=== PATIENT | male | born 1985 | race Asian ===

== ENCOUNTER 2021-11-19 08:28 | Emergency (ER) | payer OTHER, SELFPAY ==
[2021-11-19] VITALS (18 sets, daily range): BP systolic 158–178; BP diastolic 74–111; PULSE 75–97; RESP 12–27; TEMP 36.7; O2SAT 92–99
--- NOTE | ~2021-11-19 | XR_ITS ---
EXAMINATION: XR ankle LT 2V DATE: 11/19/2021 08:49 INDICATION: Left ankle deformity post fall TECHNIQUE: Anteroposterior and lateral views of the left ankle were obtained. COMPARISON: None. FINDINGS: Spiral fracture of the distal left fibular diaphysis with 25 degrees posterior and 20 degrees lateral angulation. Fracture appears mildly comminuted with a nondisplaced butterfly fragment extending up t o 6 cm proximally along the lateral margin of the proximal fragment. Complete disruption of the delto id ligament and distal tibiofibular syndesmosis with anterior and lateral dislocation of the tibial p natasha and with respect to the talus which is angulated posteriorly and laterally in conjunction with into a similar degree as the distal fibular fragment. Small os trigonum projects posterior to the ta lar dome. No other fractures identified. Moderate-sized Achilles and plantar calcaneal spurs. Profile d joint spaces in the left foot appear normal. IMPRESSION: 1. Angulated left fibular diaphyseal fracture and tibiotalar dislocation including disruption of the deltoid ligament and distal tibiofibular syndesmosis. Reviewed, dictated and finalized at location A. ER ATTACHER IMPRESSION: 1. Angulated left fibular diaphyseal fracture and tibiotalar dislocation includ ing disruption of the deltoid ligament and distal tibiofibular syndesmosis.
--- NOTE | ~2021-11-19 | XR_ITS ---
EXAMINATION: XR tibia fibula LT 2V EXAM DATE: 11/19/2021 09:28 INDICATION: ankle injury. TECHNIQUE: Left tibia/fibula frontal and lateral projections obtained and reviewed. Correlation is jacquelin cardenas to earlier same date. FINDINGS: There is fracture through the left fibular shaft with about 50% shaft width lateral displac ement. Alignment is near-anatomic. Mild widening of the ankle mortise medially (disrupted deltoid and distal tibiofibular syndesmotic ligaments were evident on prior study). Some small posterior avulsio n fragments from the tibia. There is no proximal fibular or proximal tibial fracture. Splint has been applied. IMPRESSION: Splinted left distal fibular diaphyseal fracture. Deltoid ligament and distal tibiofibul ar syndesmotic disruption. Reviewed, dictated and finalized at location B. RAL RESOURCE SPECIALIST IMPRESSION: Splinted left distal fibular diaphyseal fracture. Deltoid ligament and distal tibiofibular syndesmotic disruption.
--- NOTE | ~2021-11-19 | XR_ITS ---
EXAMINATION: XR ankle LT 2V EXAM DATE: 11/19/2021 09:28 INDICATION: Post reduction. TECHNIQUE: Frontal and lateral projections of the left ankle. Comparison is made to prior examinatio n from earlier same day. FINDINGS: Previously seen angulated left fibular fracture is now in near-anatomic alignment. There i s about 40% shaft width lateral displacement. The mortise relationship appears to have been restored. Some small avulsion fragments off of the tibia less well visualized on this exam. Based on prior ap pearance, patient has disrupted deltoid ligaments and distal tibiofibular syndesmosis. IMPRESSION: 1. Interval reduction in left talus, fibular fractures. 2. Disrupted deltoid ligaments, distal tibiofibular syndesmosis. Reviewed, dictated and finalized at location B. AL PHYSIOLOGIST
--- NOTE | 2021-11-19 08:41 | ED.GENADULT ---
HPI - General Adult General Chief complaint: Extremity Injury, Lower Stated complaint: ankle injury Time Seen by Provider: 11/19/21 08:34 History of Present Illness HPI narrative: 35-year-old male presenting to the emergency department for evaluation of a left ankle injury. Patient was stepping out of his truck slipped on ice and does have a significant deformity of his left ankle. Patient denies striking his head denies any loss consciousness. Upon arrival to the emergency room patient does have a significant deformity to his left ankle. Patient does report tingling sensation of the left foot, pulses still palpable upon arrival. Patient denies any allergies. Patient has had anesthesia before and had no issues other than nausea afterwards. Related Data Allergies Allergy/AdvReac Type Severity Reaction Status Date / Time No Known Allergies Allergy Verified 11/19/21 08:41 Review of Systems Review of Systems: CONSTITUTIONAL: Denies fever, chills, or sweats. EYES: Denies visual changes, redness, or discharge. ENT: Denies rhinorrhea, congestion, sore throat, or otalgia. CARDIOVASCULAR: Denies chest pain, palpitations, or edema. RESPIRATORY: Denies cough or dyspnea. GASTROINTESTINAL: Denies abdominal pain, nausea, vomiting, or diarrhea. GENITOURINARY: Denies dysuria or hematuria. SKIN: Denies rash or itching. MUSCULOSKELETAL: Left ankle pain and deformity All systems reviewed & are unremarkable except as noted in HPI and below Exam Narrative: APPEARANCE: Well appearing, no pain, no distress, well-nourished. HEAD: normocephalic, atraumatic. EYES: PERRLA/EOMI, conjunctivae clear. NOSE: Normal no drainage THROAT: Pharynx clear, no exudate. NECK: Supple. No adenopathy, no masses. RESPIRATORY: Airway patent, respirations nonlabored. Clear to auscultation bilaterally, no rales, rhonchi, wheezing. CARDIOVASCULAR: Regular rate and rhythm without murmurs rubs or gallops. ABDOMINAL: Soft, nontender, nondistended, normal bowel sounds Musculoskeletal: Significant deformity of the left lower ankle. Patient does have pulses intact. Patient does have tenting of the skin from the distal tibia. No break in the skin. Course Course Emergency Course: Patient ankle x-ray showed a talar dislocation. Patient was updated on results of his imaging. Patient was informed on the need for sedation and reduction and splinting. Patient underwent procedural sedation reduction and splinting without complication. Sugar-tong splint with a posterior short leg was used for increased stability. Was discussed with orthopedics and patient was seen by Dr. Hernandez in the emergency department. Patient will have follow-up with orthopedics on Monday and already has an appointment scheduled. Patient was provided crutches for nonweightbearing. Patient was also advised to rest and elevate the foot to prevent swelling. Patient was provided medications for pain control. All questions and concerns were addressed. Patient was in no distress at time of discharge from emergency room. Patient was fully recovered from and is procedural sedation at time of discharge. Vital Signs Vital signs: Vital Signs Temperature 98.0 F 11/19/21 08:34 Pulse Rate 79 11/19/21 08:34 Respiratory Rate 20 11/19/21 08:34 Blood Pressure 164/94 H 11/19/21 08:34 Pulse Oximetry 98 11/19/21 08:34 Temperature 98.0 F 11/19/21 09:44 Pulse Rate 75 11/19/21 10:32 Respiratory Rate 18 11/19/21 10:32 Blood Pressure 178/74 H 11/19/21 10:31 Pulse Oximetry 99 11/19/21 10:32 Procedures Orthopedic Fracture Reduction Fracture #1: Fracture Reduction date: 11/19/21 Fracture Reduction time: 09:09 Time Out Performed: Yes Side: left Fracture Reduction Location: other (left ankle) Analgesia: procedural sedation Technique: direct manipulation and traction/counter-traction Post Reduction X-rays Demonstrate: acceptable reduction
[2021-11-19] MEDS: fentaNYL CITRATE INJ (*CRX) 100 MCG/2 ML VIAL 75 MCG IV PUSH (09:00)
[2021-11-19] MEDS: ONDANSETRON INJ 4 MG/2 ML VIAL IV PUSH (09:01)
--- NOTE | 2021-11-19 09:37 | PC.NURSE ---
0904 60 mg propofol administered IVP Via ERP Kostas 904 60 mg Propofol administered IVP via ERP Kostas
--- NOTE | 2021-11-19 18:44 | PM.CNOR ---
Assessment and Plan Assessment and plan (1) Acute disruption of syndesmosis of ankle joint: Code(s): S93.439A - Sprain of tibiofibular ligament of unspecified ankle, initial encounter Status: Acute (2) Closed fibular fracture: Qualifiers: Encounter type: initial encounter Fibula location: shaft Fracture alignment: displaced Fracture morphology: oblique Laterality: left Qualified Code(s): S82.432A - Displaced oblique fracture of shaft of left fibula, initial encounter for closed fracture Code(s): S82.409A - Unspecified fracture of shaft of unspecified fibula, initial encounter for closed fracture Status: Acute Assessment and Plan: Ankle fracture dislocation with syndesmosis injury, and fibular shaft fracture. Reduced and splinted. Will need ORIF. Plan for syndesmosis fixation with tight rope suture button fixation. The fibula shaft may not require internal fixation. Anticipate surgery next week. Clinic check early next week. Discussed the importance of swelling control. We reviewed the expected results and typical recovery after surgery. We discussed the risks, benefits, and alternatives to surgery. He works on his feet as a cook; anticipate 4 months before he is able to return to full duty. History of Present Illness HPI Consult date: 11/19/21 Chief complaint: ankle injury Narrative: Patient complains of acute ankle pain. Fell from standing height while exiting his vehicle. Ankle dislocation reduced by ED personnel. Excellent reduction and splinting. Comfortable at rest. No numbness, tingling, or other associated symptoms. Review of Systems Review of Systems: Denies loss of consciousness. No other injuries noted. All systems reviewed & are unremarkable except as noted in HPI and below Meds Home Medications and Allergies Home Medications Medication Instructions Recorded Confirmed Type hydrocodone-acetaminophen 1 tablet PO Q6H PRN #14 tablet 11/19/21 Rx Allergies Allergy/AdvReac Type Severity Reaction Status Date / Time No Known Allergies Allergy Verified 11/19/21 08:41 Vital Signs Vital Signs - 24 hr 11/19/21 08:34 11/19/21 08:35 11/19/21 08:45 Temperature 36.7 C Pulse Rate 79 88 81 Pulse Rate [Monitor] Respiratory Rate 20 18 16 Blood Pressure 164/94 H 164/94 H Blood Pressure [Right Arm] Pulse Oximetry 98 96 11/19/21 08:46 11/19/21 09:00 11/19/21 09:04 Temperature 36.7 C 36.7 C Pulse Rate 84 Pulse Rate [Monitor] 84 80 Respiratory Rate 18 20 16 Blood Pressure 164/90 H Blood Pressure [Right Arm] 166/107 H 164/90 H Pulse Oximetry 98 95 11/19/21 09:09 11/19/21 09:14 11/19/21 09:29 Temperature 36.7 C Pulse Rate Pulse Rate [Monitor] 90 97 97 Respiratory Rate 18 23 H 26 H Blood Pressure Blood Pressure [Right Arm] 166/107 H 166/100 H 165/111 H Pulse Oximetry 95 99 92 11/19/21 09:44 11/19/21 09:46 11/19/21 09:47 Temperature 36.7 C Pulse Rate 80 88 Pulse Rate [Monitor] 88 Respiratory Rate 14 27 H 16 Blood Pressure 158/90 H Blood Pressure [Right Arm] 162/110 H Pulse Oximetry 97 96 99 11/19/21 10:00 11/19/21 10:15 11/19/21 10:16 Temperature Pulse Rate 76 85 83 Pulse Rate [Monitor] Respiratory Rate 14 12 16 Blood Pressure 166/102 H Blood Pressure [Right Arm] Pulse Oximetry 98 95 96 11/19/21 10:17 11/19/21 10:31 11/19/21 10:32 Temperature Pulse Rate 83 75 75 Pulse Rate [Monitor] Respiratory Rate 15 18 Blood Pressure 178/74 H Blood Pressure [Right Arm] Pulse Oximetry 95 97 99 Exam Narrative: Obese. Lower extremity splinted. Wiggles toes. Sensation intact. Capillary refill brisk. Const: General: no acute distress Eyes: General: appearance normal, both eyes and all related structures Resp: Effort & Inspection: normal respiratory effort Skin: General skin exam: no rashes or lesions noted Neuro: Speech: normal speech Other: Wiggles toes well. Capillary
== END 2021-11-19 10:55 | disposition home or self-care (01) ==
PROVIDERS: Emergency Provider Emergency Medicine
DX: S82.432A Displaced oblique fracture of shaft of left fibula, initial encounter for closed fracture (principal); S93.432A Sprain of tibiofibular ligament of left ankle, initial encounter; W00.0XXA Fall on same level due to ice and snow, initial encounter
CPT/HCPCS: 27781; 27825; 73590; 73600; 99285; J2405; J2704; J3010

== ENCOUNTER 2021-11-23 01:02 | Day surgery (SDC) | payer OTHER, BC, SELFPAY ==
[2021-11-22 09:54] VITALS: BMI 45.1
--- NOTE | 2021-11-22 10:05 | PC.NURSE ---
Report to the Outpatient Waiting Room, entrance under the green pavilion located off [facility], at time 1130 on date 11/23/21. OR Time: 1330. - You will be asked a series of questions to screen for COVID 19 for your protection. - A mask is required within the hospital. - No visitors are allowed at this time. Preoperative COVID Testing Requirements: TO BRING COVID CARD No COVID Test needed if: (proof is required; if not received patient will have Rapid Test prior to entry) - Patient has received COVID Vaccine at least 14 days prior to procedure date or - Patient has positive COVID test result within last 90 days of surgery date. COVID Test needed if above criteria is not met Patients may have clear liquids (water, carbonated beverages, clear teas, apple juice) until 3 hours prior to surgery with a maximum of 20 ounces. - No food from midnight until time of surgery Take the following medications with a SIP of water the morning of surgery: NONE Medications to discontinue per physician: N/A Date to take last dose: N/A Please no make-up, nail grenadian, hairspray, perfume, deodorant, or body powder the day of surgery. No jewelry (including any body piercings) or valuables the day of surgery, leave them at home. Please take a shower or bath the night before, or the morning of, surgery with an antibacterial soap. Wear comfortable, loose fitting clothing. - Jewelry must be removed prior to entering the operating room. Rings and piercings that are not removed may be cut off. - The hospital will not accept responsibility for valuables. - Please leave all valuables, including medications, at home the day of surgery. If you are going home after surgery, a licensed [employer] driver must drive you home. - NO public transportation without another adult. - We recommend that an adult stay with you for 24 hours following discharge. - We also recommend that you do not drive, make important decision, drink alcoholic beverages, or take any drugs that were not prescribed by your health care provider for at least 24 hours after your discharge time. Follow any additional instructions given to you from your surgeon. Telephone instructions given to SHIMON CAMERON and asked if any additional questions and then verbalized understanding. Patient advised to call surgeon office or pre surgery nurse liaison [phone] if any additional questions.
[2021-11-23] VITALS (10 sets, daily range): BP systolic 112–161; BP diastolic 69–100; PULSE 71–104; RESP 14–20; TEMP 36.5–37.1; O2SAT 92–99
--- NOTE | ~2021-11-23 | XR_ITS ---
EXAMINATION: XR surgery orthopedic DATE: 11/23/2021 14:14 INDICATION: Left fibular fracture. TECHNIQUE: 8 intraoperative fluoroscopic views of left lower leg were obtained. I was not present. Fl uoroscopy exposure time was 66 seconds. COMPARISON: Left tibia and fibular radiographs 11/19/2021 FINDINGS: There is an oblique fracture of distal fibular diaphysis. The distal fracture fragment demo nstrates one cortical width lateral displacement. There are 2 bands through the distal tibia and fibu la. There is normal alignment at the ankle mortise. There is a fracture fragment posterior to the dis jeff tibia on the lateral view. IMPRESSION: 1. Oblique fracture of distal tibial diaphysis with improvement in alignment. 2. Internal fixation of the tibiofibular syndesmosis. 3. Fracture fragment posterior to the distal tibia on the lateral view that may be from the distal la teral posterior tibia. Reviewed, dictated and finalized at location A. GER SOCIAL RESPONSIBILITY IMPRESSION: 1. Oblique fracture of distal tibial diaphysis with improvement in alignment. 2. Internal fixation of the tibiofibular syndesmosis. 3. Fracture fragment posterior to the distal tibia on the lateral view that may be from the distal lateral posterior tibia.
--- NOTE | 2021-11-23 09:40 | WPDHPUPDATE1 ---
History and Physical Update Update Date/Time: 11/23/21 09:40 History and Physical has been reviewed, including an updated exam of the patient. There are NO changes in the patient's condition. Risks, benefits, and alternatives have been discussed and questions answered. Patient agrees to proceed with procedure.
[2021-11-23] MEDS: LACTATED RINGERS 1,000 ML 30 ML IV CONT (12:10)
--- NOTE | 2021-11-23 12:12 | WPDANESEPPF ---
Anes - Initial Pre Proc Eval Procedure: Operation Date: 11/23/21 13:30 Proposed Procedures p Open Reduction Internal Fixation Left Fibula Shaft with Syndesmosis Fixation - Edgard Hernandez MD Date/Time: 11/23/21 12:12 Surgeon: Edgard Hernandez MD Pre Op Diagnosis: Lt Fibula Shaft Fx with Syndesmosis Patient Data Age: 35 Gender: M Height: 1.78 m Weight: 155.1 kg Allergies Allergy/AdvReac Type Severity Reaction Status Date / Time No Known Allergies Allergy Unverified 11/23/21 11:51 Home Medications Medication Instructions Recorded Confirmed Type ibuprofen 400 mg PO Q6H PRN 11/22/21 11/23/21 History Patient hx anesthesia problems: post op nausea/vomiting Family hx anesthesia problems: none Results Review: All pre-operative results and documents have been reviewed as part of the pre-operative evaluation. [facility] Past Medical History Medical History Hypertension GRETCHEN (obstructive sleep apnea) Social History Social History Smoking status: Never smoker Alcohol intake: never Substance use: never Substance use type: does not use Living arrangements: alone Spiritual care concerns: No Anes - Eval Final PreProcedure Day of Procedure 11/23/21 12:12 Patient weight: morbidly obese Heart: regular rate and rhythm Lungs: clear to auscultation Airway: Mallampati scale class II Neurological: alert and oriented Last oral intake: >/= 8 hours ASA classification: III Emergent: no Anesthetic plan: proceed Anesthesia type and monitoring: general LMA and standard monitoring Results Review: All pre-operative results and documents have been reviewed as part of the pre-operative evaluation. Informed Consent: The patient's anesthetic plan and its attendant risks and benefits were discussed with the patient/family/POA. Questions were solicited and answers provided to the satisfaction of the patient/family/POA.
[2021-11-23] MEDS: KETOROLAC 15 MG/ML VIAL (*BKC) IV PUSH (12:15)
[2021-11-23] MEDS: ACETAMINOPHEN 500 MG TABLET 1000 MG PO (12:15)
[2021-11-23] MEDS: SCOPOLAMINE 1.5 MG PATCH TRANSDERM (12:35)
[2021-11-23] MEDS: ceFAZolin 3 GM/D5W 100 ML 100 ML IVPB (13:09)
[2021-11-23] MEDS: BUPIVACAINE/EPINEPHRINE 0.25% 10 ML VIAL 30 ML INFILTRATE (13:47)
--- NOTE | 2021-11-23 15:01 | W.PM.PROC2 ---
Procedure Note - Detailed Date of Procedure 11/23/21 Pre-op Diagnosis Left ankle fracture dislocation with complete disruption of the tib-fib syndesmosis, deltoid ligament, and fibular shaft fracture. Post-op Diagnosis same Procedure Performed 1. Open reduction internal fixation tib fib syndesmosis left ankle. 2. ORIF left fibular shaft fracture without internal fixation. Surgeon Edgard Hernandez MD Cnc Mill Set Up Operator Vivienne Basurto PA-C Anesthesia general and local Indications Displaced tibiotalar ankle fracture dislocation. Reduced in the emergency room. Injury pattern includes deltoid ligament disruption, fibular shaft fracture and tibial fibular syndesmosis disruption. Findings The joint was very congruous and stable with reduction of the distal fibula. The shaft fracture aligned nicely with good length and overall alignment. The ankle mortise was well reconstructed and stable. Description of Procedure Preoperative antibiotics were given. A general anesthetic was administered. The limb was prepped and draped in the usual sterile fashion with a well-padded tourniquet high on the thigh. The limb was exsanguinated and the tourniquet inflated to 300 mmHg. Biplanar fluoroscopy was used to confirm anatomic reduction and appropriate placement of all implants. A longitudinal incision was created at the distal fibula. The periosteum was elevated. This 2 hole plate was applied and temporarily fixed. Fluoroscopy showed that the tight rope suture fixation for the syndesmosis would be at the optimal position. Reduction of the fibular fracture with manipulation of the ankle and the distal fibula showed near anatomic reduction and length. The tight ropes were placed from the fibula into the tibia with a drill path from posterior to anterior. Sequential tightening of the button on the tibial cortex and at the site on the fibular plate was performed. The ankle mortise appeared to reduce anatomically with multiple fluoroscopic views. The clear space at the medial plafond and joint spaces appeared anatomic. Stressing of the ankle revealed good stability. Mild gapping with dynamic testing of the deltoid could be achieved with eversion stress. This was consistent with the deltoid ligament injury. No further suture fixation was required. Overall ankle alignment was excellent. No further hardware or reconstruction was indicated. The tourniquet was released. Meticulous hemostasis maintained. The wound was closed with interrupted 2 0 Vicryl suture followed by 3-0 Monocryl suture and 3-0 nylon suture. 20 mL, 0.25% Marcaine with epinephrine was injected throughout the ankle medially and lateral. Xeroform gauze and a bulky dressing was applied. Posterior splint with stirrups applied. Gentle compression wrap applied. The patient was extubated and brought to recovery in stable condition. There were no complications. Implants Arthrex tight rope suture button system x2 with 2 hole plate. Estimated Blood Loss -5.0 Drains No Packing No Pathology none sent Complications No immediate complications Condition stable Disposition same day
== END 2021-11-23 17:15 | disposition home or self-care (01) ==
PROVIDERS: Visit Provider Orthopaedic Surgery
PROC: (CPT 27829; principal; 2021-11-23 13:30)
DX: S82.432A Displaced oblique fracture of shaft of left fibula, initial encounter for closed fracture (principal); S93.432A Sprain of tibiofibular ligament of left ankle, initial encounter; V48.4XXA Person boarding or alighting a car injured in noncollision transport accident, initial encounter; I10 Essential (primary) hypertension; G47.33 Obstructive sleep apnea (adult) (pediatric); E66.01 Morbid (severe) obesity due to excess calories; Z68.42 Body mass index [BMI] 45.0-49.9, adult
CPT/HCPCS: 27829; 27784; A9270; J0690; J1100; J1885; J2250; J2270; J2405; J2704; J3010; J7120

== ENCOUNTER 2023-10-06 17:24 | Emergency (ER) | payer SELFPAY ==
--- NOTE | ~2023-10-06 | XR_ITS ---
EXAMINATION: XR chest 1V portable DATE: 10/06/2023 21:48 INDICATION: Dyspnea. TECHNIQUE: A single frontal view of the chest was obtained. COMPARISON: Chest single view 03/03/2021 FINDINGS: There is no pneumonia, pleural effusion, or pneumothorax. The heart size is normal. IMPRESSION: 1. No acute cardiopulmonary disease. Reviewed, dictated and finalized at location E. RAPHY HEAD
--- NOTE | ~2023-10-06 | CT_ITS ---
EXAMINATION: CT soft tissue neck w con DATE: 10/06/2023 22:51 INDICATION: Sore throat. Hemoptysis. TECHNIQUE: Computed tomography (CT) of the neck was performed with 75 mL Omnipaque-350 intravenous co ntrast. Automated exposure control and iterative reconstruction technique were employed. The dose-robb gth product was 682.85 mGy-cm. COMPARISON: None FINDINGS: The palatine tonsils are enlarged. There are calcifications in the palatine tonsils. No abs cess. There is mild left high and mid internal jugular chain lymphadenopathy. There is mild mucosal t hickening in the ethmoid sinuses. There is mild cervical spondylosis. IMPRESSION: 1. Enlarged palatine tonsils. No abscess. 2. Mild left high and mid internal jugular chain lymphadenopathy, likely reactive. Reviewed, dictated and finalized at location E. ACER OPERATOR IMPRESSION: 1. Enlarged palatine tonsils. No abscess. 2. Mild left high and mid internal jugular chain lymphadenopathy, likely reacti ve.
--- NOTE | ~2023-10-06 | CT_ITS ---
EXAMINATION: CTA chest PE protocol DATE: 10/06/2023 22:45 INDICATION: Hemoptysis. Chest pain. TECHNIQUE: Computed tomography angiography (CTA) of the chest was performed with 100 mL Omnipaque-350 intravenous contrast timed to evaluate the pulmonary arteries. Coronal maximum intensity projection 3D-reconstructions were created by the technologist. Automated exposure control and iterative reconst ruction technique were employed. The dose-length product was 1059.12 mGy-cm. COMPARISON: None. FINDINGS: The lungs demonstrate mild atelectasis. No pleural effusion. The heart size is normal. No p ericardial effusion. There is no pulmonary embolus. There is diffuse hepatic steatosis. There is mild thoracic spondylosis. Thoracic dextroscoliosis is noted. IMPRESSION: 1. No pulmonary embolus. Reviewed, dictated and finalized at location E. CLINICIAN IMPRESSION: 1. No pulmonary embolus.
[2023-10-06 17:36] VITALS: BP 142/83; PULSE 106; RESP 20; TEMP 36.7; O2SAT 97
[2023-10-06 21:26] LABS: Influenza A QL RT-PCR Negative (Negative); Influenza B QL RT-PCR Negative (Negative); RSV RNA, RT-PCR Negative (Negative); SARS-CoV-2 RNA PCR Negative (Negative)
--- NOTE | 2023-10-06 21:38 | ECG_ITS ---
Measurements Intervals [place] Rate: 106 P: 22 [place]: 144 QRS: -29 QRSD: 91 T: 52 QT: 350 QTc: 465 Interpretive Statements SINUS TACHYCARDIA S1-S2-S3 PATTERN, CONSISTENT WITH PULMONARY DISEASE, RVH, OR NORMAL VARIANT PATTERN CONSISTENT WITH PULMONARY DISEASE NO PREVIOUS ECG AVAILABLE FOR COMPARISON Electronically Signed On 10-08-2023 10:16:33 COLLAR SEPARATOR by Artem Thompson M.D.
[2023-10-06 22:02] LABS: Glucose Point of Care 159 mg/dl (65-105)
[2023-10-06] MEDS: SODIUM CHLORIDE 0.9% IV 2,000 ML 999 ML IV CONT (22:13)
[2023-10-06] MEDS: ACETAMINOPHEN 500 MG TABLET 1000 MG PO (22:13)
[2023-10-06 22:22] LABS: Basophils Percent Auto 0.3 % (0.2-1.2); Eosinophils Absolute Auto 0.1 K/mm3 (0-0.3); Eosinophils Percent Auto 0.6 % (0-4.4); Hematocrit 43.7 % (42.0-52.0); Hemoglobin 14.7 g/dL (14.0-18.0); Immature Granulocyte Absolute 0.04 K/mm3 (0.00-0.031); Immature Granulocyte Percent A 0.4 % (0-0.5); Lymphocytes Absolute Auto 2.27 K/mm3 (0.9-3.2); Lymphocytes Percent Auto 22.9 % (18.3-44.2); Mean Corpuscular HGB Conc 33.6 g/dl (32-36); Mean Corpuscular Hemoglobin 30.4 pg (26-34); Mean Corpuscular Volume 90.3 fl (80-100); Mean Platelet Volume 9.5 fl (7.4-10.4); Monocytes Absolute Auto 1.2 K/mm3 (0.1-0.6); Monocytes Percent Auto 11.9 % (2.6-8.5); Neutrophils Absolute Auto 6.3 K/mm3 (1.3-6.7); Neutrophils Percent Auto 63.9 % (45.5-73.1); Platelet Count Result 265 k/mm3 (150-375); Red Blood Count 4.84 M/mm3 (4.6-6.20); Red Cell Distribution Width 12.2 % (11.5-14.5); White Blood Count 9.9 K/mm3 (4.5-10.0)
[2023-10-06 22:32] LABS: Alanine Aminotransferase 65 U/L (6-50); Albumin Level 4.2 g/dL (3.5-5.1); Alkaline Phosphatase 91 U/L (38-126); Anion Gap 9 mmol/L (8-16); Aspartate Amino Transferase 40 U/L (17-59); Bilirubin,Total 0.7 mg/dL (0.2-1.3); Blood Urea Nitrogen 13 mg/dL (9-20); Calcium 9.1 mg/dL (8.4-10.2); Carbon Dioxide 27 mmol/L (22-30); Chloride 100 mmol/L (98-107); Estimated CRCL calculation 220 ml/min; Estimated Glomerular Filt Rate > 60; Glucose 135 mg/dL (65-110); Potassium 3.5 mmol/L (3.4-5.0); Sodium 136 mmol/L (137-145)
[2023-10-06 22:34] LABS: Partial Thromboplastin Time 32.2 SECONDS (22.3-36.8)
[2023-10-06 22:42] LABS: Strep Group A RT-PCR DETECTED (Negative)
[2023-10-06 22:43] LABS: NT Pro B Type Natriuretic Pept 36 pg/mL (19.9-100); Troponin I < 0.012 ng/mL (0.000-0.034)
--- NOTE | 2023-10-06 23:20 | ED.GENADULT ---
HPI - General Adult General Chief complaint: Upper Respiratory Infection Stated complaint: coughing up blood Time Seen by Provider: 10/06/23 20:46 History of Present Illness HPI narrative: This is a 37-year-old male presenting ED with chief complaint of coughing up blood. Patient says he has had a cough for approximately 2 weeks. Yesterday he started coughing up twyla red blood although he is not sure if he was coughing it or if it was from a nose bleed drip down the back of his throat. Is also complaining of a sore throat and pain on swallowing. He also says that he has chest pain in the center of his chest that is worse with coughing. No risk factors for DVT PE. No fever chills nausea vomiting or diarrhea. He says he has had decreased oral intake due to throat pain. He is able does swallow his own secretions. No voice changes Related Data Allergies Allergy/AdvReac Type Severity Reaction Status Date / Time No Known Allergies Allergy Verified 12/06/21 08:01 [facility] Past Medical History Medical History History of postoperative nausea and vomiting Hypertension GRETCHEN (obstructive sleep apnea) Surgical History Surgical History Status post open reduction with internal fixation (ORIF) of fracture of ankle (~11/23/21) ORIF Left fibula shaft w syndesmosis fixation Social History Social History Smoking status: Never smoker Alcohol intake: never Substance use: never Substance use type: does not use Living arrangements: alone Spiritual care concerns: No Exam Narrative: APPEARANCE: No apparent distress. Head: Tonsils are swollen without exudates or erythema. EYES: EOMI, NOSE: Atraumatic NECK: Trachea midline RESPIRATORY: No increased rate of breathing, clear to auscultation CARDIOVASCULAR: Tachycardic, no peripheral edema ABDOMINAL: Non-distended MUSCULOSKELETAl: No obvious deformities NEURO: Alert. Moving 4/4 extremities SKIN:: Warm, dry. Normal color PSYCHIATRIC: Normal affect Course Vital Signs Vital signs: Vital Signs Temperature 98.1 F 10/06/23 17:36 Pulse Rate 106 H 12/08/23 17:36 Respiratory Rate 20 10/06/23 17:36 Blood Pressure 142/83 H 10/06/23 17:36 Pulse Oximetry 97 10/06/23 17:36 Oxygen Delivery Room Air 10/06/23 17:36 Temperature 98.1 F 10/06/23 17:36 Pulse Rate 106 H 10/06/23 17:36 Respiratory Rate 20 10/06/23 17:36 Blood Pressure 142/83 H 10/06/23 17:36 Pulse Oximetry 97 10/06/23 17:36 Oxygen Delivery Room Air 10/06/23 22:10 Medical Decision Making MDM Narrative Medical decision making narrative: -Course: 37-year-old male presenting with multiple complaints including sore throat, hemoptysis and chest pain. Physical exam his tonsils were swollen and edematous without erythema or exudates although you was very limited due to redundant tissue. He did have some voice changes but was handling his own secretions. CT neck showed swollen tonsils. Strep was positive. CT PE was ordered for hemoptysis/tachycardia/ chest pain and was negative for PE. Patient was given amoxicillin dexamethasone and pain control. Discharged with return precautions. -DDX includes but is not limited to: Strep throat, infection deep space infection of the neck, PE, bronchitis, pneumonia, epistaxis -Co-morbidities complicating care: Obesity -Social determinants of health: Works as his shift at a school -Independent interpretation of studies: Lab work within normal limits. Viral swabs negative. Strep positive. CT showed enlarged tonsils. CT PE negative. Chest x-ray negative. Interventions: Amoxicillin, dexamethasone, Tylenol, Toradol -Shared decision making / Disposition: Discharged -RX amoxicillin Vital Signs Vital Signs: Vital Signs Temperature 98.1 F 10/06/23 17:36
--- NOTE | 2023-10-06 23:27 | PC.NURSE ---
This RN assumed care of patient. This RN took patient report from ART Holcomb.
[2023-10-06] MEDS: KETOROLAC 15 MG/ML VIAL (*BKC) IV PUSH (23:52)
[2023-10-06] MEDS: AMOXICILLIN 500 MG CAPSULE PO (23:52)
== END 2023-10-07 00:28 | disposition home or self-care (01) ==
PROVIDERS: Student in an Organized Health Care Education/Training Program; Emergency Provider Emergency Medicine
DX: J02.0 Streptococcal pharyngitis (principal); R04.2 Hemoptysis; Z20.822 Contact with and (suspected) exposure to COVID-19; I10 Essential (primary) hypertension; G47.33 Obstructive sleep apnea (adult) (pediatric); E66.9 Obesity, unspecified; Z68.43 Body mass index [BMI] 50.0-59.9, adult; R00.0 Tachycardia, unspecified; R94.31 Abnormal electrocardiogram [ECG] [EKG]
CPT/HCPCS: 36415; 70491; 71045; 71275; 80053; 82948; 83880; 84484; 85025; 85610; 85730; 87637; 87651; 93005; 96361; 96374; 96375; 99284; A9270; J1100; J1885; J7030; Q9967

== ENCOUNTER 2024-04-21 16:09 | Emergency (ER) | payer SELFPAY ==
[2024-04-21] VITALS (9 sets, daily range): BP systolic 148–179; BP diastolic 67–114; PULSE 95–115; RESP 20–22; TEMP 36.6–36.8; O2SAT 88–98
--- NOTE | ~2024-04-21 | CT_ITS ---
EXAMINATION: CTA chest PE protocol DATE: 04/21/2024 18:46 INDICATION: Shortness of breath. TECHNIQUE: Computed tomography angiography (CTA) of the chest was performed with 100 mL Omnipaque-350 intravenous contrast timed to evaluate the pulmonary arteries. Coronal maximum intensity projection 3D-reconstructions were created by the technologist. Automated exposure control and iterative reconst ruction technique were employed. The dose-length product was 1055.98 mGy-cm. COMPARISON: Chest CT 10/06/2023 FINDINGS: The lungs demonstrate mild atelectasis. There is a pneumatocele left upper lobe. No pleural effusion. Cardiomegaly is noted. No pericardial effusion. The central pulmonary is enlarged, consist ent with pulmonary arterial hypertension. There is no pulmonary embolus. There is mild thoracic spond ylosis. IMPRESSION: 1. No pulmonary embolus. Reviewed, dictated and finalized at location E. IMPRESSION: 1. No pulmonary embolus.
--- NOTE | ~2024-04-21 | XR_ITS ---
EXAMINATION: XR chest 1V portable DATE: 04/21/2024 16:53 INDICATION: Shortness of breath. TECHNIQUE: A single frontal view of the chest was obtained on 2 radiograph. COMPARISON: Chest single view 10/06/2023 FINDINGS: There is mild atelectasis in the lower lung zones. No pleural effusion or pneumothorax. The heart size is normal. IMPRESSION: 1. Mild atelectasis in the lower lung zones. Reviewed, dictated and finalized at location E.
--- NOTE | 2024-04-21 16:17 | ECG_ITS ---
Test Date: 2024-04-21 17:03:38 Measurements Intervals [place] Rate: 104 P: 30 MO: 154 QRS: -19 QRSD: 89 T: 74 QT: 363 QTc: 479 Interpretive Statements SINUS TACHYCARDIA LEFTWARD AXIS POOR R-WAVE PROGRESSION ABNORMAL ECG No previous ECG available for comparison Electronically Signed On 04-22-2024 07:21:22 CDT by Raj Bergeron M.D.
[2024-04-21] MEDS: ALBUTEROL SULFATE NEB 2.5 MG/3 ML INH INHALATION (17:11)
--- NOTE | 2024-04-21 17:36 | ED.GENADULT ---
HPI - General Adult General Chief complaint: Shortness of Breath/Dyspnea <Juni Kenyon MD - Last Filed: 04/22/24 18:12> Stated complaint: dyspnea <Juni Kenyon MD - Last Filed: 04/22/24 18:12> Time Seen by Provider: 04/21/24 16:19 <Juni Kenyon MD - Last Filed: 04/22/24 18:12> History of Present Illness HPI narrative: 38-year-old male presenting to the emergency department for evaluation for persistent shortness of breath. Patient was admitted for pneumonia approximately 1 month ago. Patient states over the course of the last 4 weeks he has had persistent exertional shortness of breath. Patient does have longstanding lymphedema which he states is somewhat worsened. Patient describes orthopnea and exertional shortness of breath. Patient states he has had 2 episodes where he did have some blood-tinged sputum. <Juni Kenyon MD - Last Filed: 04/22/24 18:12> Related Data Allergies/adverse reactions: Allergies Allergy/AdvReac Type Severity Reaction Status Date / Time No Known Allergies Allergy Verified 12/06/21 08:01 <Juni Kenyon MD - Last Filed: 04/22/24 18:12> Review of Systems Review of Systems: All systems reviewed & are unremarkable except as noted in HPI and below <Juni Kenyon MD - Last Filed: 04/22/24 18:12> PMFSH Past Medical History Medical History: Medical History History of postoperative nausea and vomiting Hypertension GRETCHEN (obstructive sleep apnea) <Juni Kenyon MD - Last Filed: 04/22/24 18:12> Surgical History Surgical History: Surgical History Status post open reduction with internal fixation (ORIF) of fracture of ankle (~11/23/21) ORIF Left fibula shaft w syndesmosis fixation <Juni Kenyon MD - Last Filed: 04/22/24 18:12> Social History Social History: Social History Smoking status: Never smoker Alcohol intake: never Substance use: never Substance use type: does not use Living arrangements: alone Spiritual care concerns: No <Juni Kenyon MD - Last Filed: 04/22/24 18:12> Exam Narrative: APPEARANCE: Well appearing, no pain, no distress, well-nourished. HEAD: normocephalic, atraumatic. EYES: PERRLA/EOMI, conjunctivae clear. NOSE: Normal no drainage EARS:TMS clear with good light reflex. THROAT: Pharynx clear, no exudate. NECK: Supple. No adenopathy, no masses. RESPIRATORY: Airway patent, respirations nonlabored. Clear to auscultation bilaterally, no rales, rhonchi, wheezing. CARDIOVASCULAR: Regular rate and rhythm without murmurs rubs or gallops. ABDOMINAL: Soft, nontender, nondistended, normal bowel sounds MUSCULOSKELETAL: Bilateral lower extremity edema NEURO: Alert. Cranial nerves II through XII intact. Grossly intact SKIN: Warm, dry. Normal Color <Juni Kenyon MD - Last Filed: 04/22/24 18:12> Course Course Emergency Course: assumed care pending CTA chest. The CTA is unremarkable overall. Patient is able to maintain good saturations on room air. He will be discharged home in stable condition. <Alberto Ford PA-C - Last Filed: 04/21/24 20:03> Vital Signs Vital signs: Vital Signs Temperature 98.3 F 04/21/24 16:10 Pulse Rate 114 H 04/21/24 16:10 Respiratory Rate 22 H 04/21/24 16:10 Pulse Oximetry 90 04/21/24 16:10 Temperature 97.8 F 04/21/24 16:15 Pulse Rate 98 04/21/24 19:20 Respiratory Rate 20 04/21/24 19:20 Blood Pressure 148/67 H 04/21/24 19:20 Pulse Oximetry 94 04/21/24 20:11 Oxygen Delivery Room Air 04/21/24 20:11 Oxygen Flow Rate 3 04/21/24 19:20 <Juni Kenyon MD - Last Filed: 04/22/24 18:12> Vital Signs Temperature 98.3 F 04/21/24 16:10 Pulse Rate 114 H 04/21/24 16:10 Respiratory Rate 22 H 04/21/24 16:10 Pulse Oxi
[2024-04-21 18:00] LABS: Basophils Percent Auto 0.2 % (0.2-1.2); Eosinophils Absolute Auto 0.1 K/mm3 (0-0.3); Eosinophils Percent Auto 1.1 % (0-4.4); Hematocrit 44.4 % (42.0-52.0); Hemoglobin 14.7 g/dL (14.0-18.0); Immature Granulocyte Absolute 0.04 K/mm3 (0.00-0.031); Immature Granulocyte Percent A 0.5 % (0-0.5); Lymphocytes Absolute Auto 2.38 K/mm3 (0.9-3.2); Lymphocytes Percent Auto 29.2 % (18.3-44.2); Mean Corpuscular HGB Conc 33.1 g/dl (32-36); Mean Corpuscular Hemoglobin 30.5 pg (26-34); Mean Corpuscular Volume 92.1 fl (80-100); Mean Platelet Volume 9.5 fl (7.4-10.4); Monocytes Absolute Auto 0.8 K/mm3 (0.1-0.6); Monocytes Percent Auto 9.7 % (2.6-8.5); Neutrophils Absolute Auto 4.8 K/mm3 (1.3-6.7); Neutrophils Percent Auto 59.3 % (45.5-73.1); Platelet Count Result 247 k/mm3 (150-375); Red Blood Count 4.82 M/mm3 (4.6-6.20); Red Cell Distribution Width 12.5 % (11.5-14.5); White Blood Count 8.2 K/mm3 (4.5-10.0)
[2024-04-21 18:10] LABS: Lactic Acid Reflex 1.4 mmol/L (0.7-2.0)
[2024-04-21 18:11] LABS: Alanine Aminotransferase 45 U/L (6-50); Alkaline Phosphatase 68 U/L (38-126); Anion Gap 4 mmol/L (4-12); Aspartate Amino Transferase 32 U/L (17-59); Bilirubin,Total 0.4 mg/dL (0.2-1.3); Blood Urea Nitrogen 9 mg/dL (9-20); Calcium 8.8 mg/dL (8.4-10.2); Carbon Dioxide 31 mmol/L (22-30); Chloride 106 mmol/L (98-107); Estimated CRCL calculation 223 ml/min; Estimated Glomerular Filt Rate > 60; Glucose 125 mg/dL (65-110); Potassium 3.7 mmol/L (3.4-5.0); Sodium 141 mmol/L (137-145)
[2024-04-21 18:15] LABS: INR 0.9; Partial Thromboplastin Time 29.4 Seconds (22.3-36.8); Prothrombin Time 12.8 Seconds (11.1-14.7)
[2024-04-21 19:55] LABS: Influenza A QL RT-PCR Negative (Negative); Influenza B QL RT-PCR Negative (Negative); RSV RNA, RT-PCR Negative (Negative); SARS-CoV-2 RNA PCR Negative (Negative)
== END 2024-04-21 20:11 | disposition home or self-care (01) ==
PROVIDERS: Emergency Provider Emergency Medicine
DX: R06.02 Shortness of breath (principal); Z20.822 Contact with and (suspected) exposure to COVID-19; I10 Essential (primary) hypertension; G47.33 Obstructive sleep apnea (adult) (pediatric); Z87.01 Personal history of pneumonia (recurrent); R00.0 Tachycardia, unspecified
CPT/HCPCS: 36415; 71045; 71275; 80053; 83605; 85025; 85610; 85730; 87040; 87637; 93005; 94640; 99284; Q9967